=== PATIENT | male | born 1990 | race Caucasian/White ===

== ENCOUNTER 2017-04-04 08:42 | Emergency (ER) | payer BC, OTHER ==
[2017-04-04] MEDS ORDERED: ONDANSETRON 4 MG/2 ML VIAL IVPB ONE (08:47)
[2017-04-04] MEDS ORDERED: SODIUM CHLORIDE 1,000 ML IV STA (08:47)
--- NOTE | 2017-04-04 08:49 | PDOC ---
History of Present Illness - General Chief Complaint: Diarrhea Stated Complaint: DIARRHEA Time Seen by Provider: 04/04/17 08:43 - History of Present Illness Initial Comments: 04/04/17 08:48 26 M with no PMH presents to ER with N/V/D x 1 day. Pt states that since last night he has vomited about 6 times and had as many episodes of nonbloody diarrhea. Pt denies any focal abdominal pain but states he has abdominal cramps when he vomits. Denies F/C. Denies sick contacts. No dysuria. Past History - Past Medical History Allergies/Adverse Reactions: Allergies Allergy/AdvReac Type Severity Reaction Status Date / Time No Known Allergies Allergy Verified 04/04/17 08:42 Home Medications: Ambulatory Orders NK [No Known Home Medication] 04/04/17 Review of Systems - Review of Systems Comments:: 04/04/17 08:48 "GENERAL/CONSTITUTIONAL: No fever or chills. No weakness. HEAD, EYES, EARS, NOSE AND THROAT: No change in vision. No ear pain or discharge. No sore throat. CARDIOVASCULAR: No chest pain or shortness of breath. RESPIRATORY: No cough, wheezing, or hemoptysis. GASTROINTESTINAL: +N/V/D GENITOURINARY: No dysuria, frequency, or change in urination. MUSCULOSKELETAL: No joint or muscle swelling or pain. No neck or back pain. SKIN: No rash NEUROLOGIC: No headache, vertigo, loss of consciousness, or change in strength/ sensation. ENDOCRINE: No increased thirst. No abnormal weight change. HEMATOLOGIC/LYMPHATIC: No anemia, easy bleeding, or history of blood clots. ALLERGIC/IMMUNOLOGIC: No hives or skin allergy. " *Physical Exam - Physical Exam Comments: 04/04/17 08:49 "GENERAL: Awake, alert, and fully oriented, in no acute distress HEAD: No signs of trauma EYES: PERRLA, EOMI, sclera anicteric, conjunctiva clear ENT: Auricles normal inspection, hearing grossly normal, nares patent, oropharynx clear without exudates. Moist mucosa NECK: Nontender, no stepoffs, Normal ROM, supple, no lymphadenopathy, JVD, or masses LUNGS: Breath sounds equal, clear to auscultation bilaterally. No wheezes, and no crackles HEART: Regular rate and rhythm, normal S1 and S2, no murmurs, rubs or gallops ABDOMEN: Soft, nontender, normoactive bowel sounds. No guarding, no rebound. No masses EXTREMITIES: Normal range of motion, no edema. No clubbing or cyanosis. No cords, erythema, or tenderness NEUROLOGICAL: Cranial nerves II through XII intact. 5/5 strength and sensation in all extremities, Normal speech, normal gait SKIN: Warm, Dry, normal turgor, no rashes or lesions noted. " Medical Decision Making - Medical Decision Making 04/04/17 08:49 26 M with N+V+D. Likely viral gastroenteritis. Pt well appearing with nontender abdomen, making acute surgical process unlikely. - IVF, zofran - PO trial 04/04/17 09:50 Pt reassessed - now feels much better s/p IVF and zofran. Tolerating PO fluids without issue. Pt well appearing, benign abdomen, vitals normal, clinically stable for DC. I discussed the physical exam findings, ancillary test results and final diagnoses with the patient. I answered all of the patient's questions. The patient was satisfied with the care received and felt comfortable with the discharge plan and treatment plan. The patient agrees to follow up with the primary care physician within 24-72 hours. *DC/Admit/Observation/Transfer Diagnosis at time of Disposition: Gastroenteritis - Discharge Dispostion Disposition: HOME - Referrals - Patient Instructions Printed Discharge Instructions: DI for Viral Gastroenteritis -- Adult Additional Instructions: Drink plenty of fluids to stay hydrated. Take tylenol or motrin as needed for fevers. If you experience worsening nausea, vomiting, fevers, abdominal pain, or any other concerning symptoms, return to the ER immediately. Otherwise, follow up with your primary care doctor within 1 week for a check up. - Post Discharge Activity - Attestations Physician Attestion: 04/04/17 09:52 I, Dr. Jameson Malave MD, attest that this document has been prepared under my direction and personally reviewed by me in its entirety. I further attest, that it accurately reflects all work, treatment, procedures and medical decision -making performed by me.
[2017-04-04 09:00] VITALS: BP 135/83; PULSE 89; TEMP 98.2; BMI 22.1
[2017-04-04] MEDS ORDERED: ONDANSETRON 4 MG/2 ML VIAL ONE (09:05)
== END 2017-04-04 10:11 | disposition home or self-care (01) ==
LOC: FER 08:42
PROC: 3E033GC Introduction of Other Therapeutic Substance into Peripheral Vein, Percutaneous Approach (ICD-10-PCS; principal; 2017-04-04)
PROC: 3E0337Z Introduction of Electrolytic and Water Balance Substance into Peripheral Vein, Percutaneous Approach (ICD-10-PCS; 2017-04-04)
DX: K52.9 Noninfective gastroenteritis and colitis, unspecified (principal)
CPT/HCPCS: 99282-25